=== PATIENT | female | born 1995 | race Two or more races ===

== ENCOUNTER 2019-05-10 07:43 | Emergency (ER) | payer OTHER ==
--- NOTE | 2019-05-10 07:45 | ER Report ---
History and Physical Time Seen By MD: 07:45 HPI/ROS CHIEF COMPLAINT: Red painful rash to bottom of the right foot HISTORY OF PRESENT ILLNESS: Patient is a 23-year-old female with no contributory past medical history who presents emergency department with concern of a painful red rash to the bottom of her right foot that seems to be enlarging. She states she 1st noted the symptoms yesterday. 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 She does wear shoes while performing these activities and does not recall any puncture wounds while either running or bicycling. She further does not call any traumatic injury to the foot. She states that she's been having subjective fevers along with 2 episodes of vomiting and generalized malaise since onset of these symptoms. She denies any other symptoms including chest pain or shortness of breath. She denies abdominal pain. She denies any or breast-feeding. She is unsure of the last date of her tetanus but it is greater than 5 years. REVIEW OF SYSTEMS: Constitutional: Tactile fevers and chills Cardiovascular: No chest pain, no palpitations. Respiratory: No cough, no shortness of breath. Gastrointestinal: No abdominal pain, no vomiting. Skin: Painful rash the bottom of the right foot Allergies: Coded Allergies: No Known Drug Allergies (Unverified , 05/10/19) Home Meds Active Scripts Cephalexin 500 Mg Tab (KEFLEX 500 MG TAB) 500 Mg Tablet, 500 MG PO Q6H, #28 TAB 0 Refills TAKE ONE TABLET BY MOUTH EVERY SIX HOURS Prov:DEANN TALAMANTES MD 05/10/19 Past Medical/Surgical History Noncontributory Constitutional Vital Sign - Last 24 Hours 05/10/19 05/10/19 05/10/19 05/10/19 07:43 07:47 07:48 08:00 Temp 98.7 Pulse ??? 101 Resp 16 B/P (MAP) 114/81 114/81 (92) 122/81 (95) Pulse Ox 95 O2 Delivery Room Air 05/10/19 05/10/19 05/10/19 05/10/19 08:03 08:23 08:30 08:43 Pulse 91 89 81 B/P (MAP) 124/84 (97) Pulse Ox 95 95 96 Physical Exam General appearance: Alert no distress. Musculoskeletal: Examination of the right foot reveals no acute deformity. On the bottom of the right foot there is an area of well-circumscribed erythema with spreading streaking that goes over to the dorsum of the foot on the medial aspect. There is no evidence of cuts, there is no evidence of puncture wound. The area is tender to the touch as well as being warm. = Medical Decision Making EKG/Imaging Imaging No fracture or foreign body identified x-ray was interpreted by myself ED Course/Re-evaluation ED Course 05/10/2019 8:04:33 am based on history and physical exam cellulitis is the most likely diagnosis. We will perform x-ray of the right foot today identifies a foreign body although this is unlikely. We will also update the patient's tetanus status. We will give oral cephalexin. We will have the patient return to the emergency department for recheck in 24 hours. Decision to Disposition Date: May 10, 2019 Decision to Disposition Time: 08:42 Depart Departure Latest Vital Signs Vital Signs Date Time Temp Pulse Resp B/P (MAP) Pulse Ox O2 Delivery O2 Flow Rate FiO2 05/10/19 08:43 81 96 05/10/19 08:30 124/84 (97) 05/10/19 07:47 98.7 16 Room Air Impression: Primary Impression: Cellulitis Condition: Improved Disposition: HOME OR SELF-CARE New Scripts Cephalexin 500 Mg Tab (KEFLEX 500 MG TAB) 500 Mg Tablet 500 MG PO Q6H, #28 TAB 0 Refills TAKE ONE TABLET BY MOUTH EVERY SIX HOURS Prov: DEANN TALAMANTES MD 05/10/19 Departure Forms: ER Transition Record, Medications Reconciliation, Off Work/School Form, School or Work Release?: Work Number of days to be released: 2 Patient Portal Information Patient Instructions: Cellulitis (ED) Additional Instructions: Return to the emergency department tomorrow and tell the check processing clerk that you were seen by Dr. Talamantes yesterday and that I would like to recheck you in the waiting room to tomorrow to determine if you need to be seen again in the emergency department. If at anytime he develops worsening symptoms including fever greater than 101.4 or higher or worsening of redness, pain or swelling you should return to the emergency department sooner for recheck and evaluation. Stay off your feet as much as possible for the next 48 hours. Problem Qualifiers Primary Impression: Cellulitis Site of cellulitis: extremity Site of cellulitis of extremity: lower extremity Laterality: right Qualified Codes: L03.115 - Cellulitis of right lower limb DEANN TALAMANTES MD May 10, 2019 07:45
[2019-05-10] MEDS ORDERED: DIPHTH/TETANUS/ACEL. PERTUSSIS IM ONLY ONE (08:00)
[2019-05-10] MEDS ORDERED: CEPHALEXIN MONO 500 MG CAP PO ONE (08:00)
[2019-05-10] MEDS ORDERED: CEPH500T7 PO (08:06)
[2019-05-10 08:30] VITALS: BP 124/84
--- NOTE | 2019-05-10 08:46 | RADIOLOGY IMAGING REPORT ---
FACILITY: [facility] - [place] PATIENT NAME: Lin Wang : 1995 MR: [id number] V: [id number] EXAM DATE: ORDERING PHYSICIAN: DEANN WATSON TECHNOLOGIST: Location: [facility] - [place] Patient: Lin Wang : 1995 Visit/Account:[id number] Date of Sevice: 05/10/2019 Exam type: FOOT 3 VIEWS RIGHT History: PAIN, SWELLING Comparison: None. Findings: There is soft tissue swelling over the lateral aspect of the right foot at the right fifth MTP joint. Period there is no evidence of underlying fracture dislocation or radiopaque soft tissue foreign demetrius dy. No soft tissue gas is seen IMPRESSION: 1. Soft tissue swelling lateral to the right fifth MTP joint. No underlying fracture dislocation or radiopaque soft tissue foreign body seen Report Dictated By: Antonia Warren MD at 05/10/2019 8:38 AM Report E-Signed By: Antonia Warren MD at 05/10/2019 8:42 AM WSN:[email or web address]
== END 2019-05-10 08:52 | disposition home or self-care (01) ==
LOC: ER 07:58
DX: L03.115 Cellulitis of right lower limb (principal)
CPT/HCPCS: 90471; 90715; 99283